=== PATIENT | male | born 1935 | race Caucasian/White ===

== ENCOUNTER 2018-11-04 13:45 | Inpatient (IN) ==
[2018-11-04 14:30] LABS: Basophils # 0.1 K/mcL (0.0-0.2); Basophils % 0.8 %; Eosinophils % 0.3 %; Hematocrit 45.4 % (37.5-50.1); Hemoglobin 14.3 g/dL (12.9-16.9); Immature Granulocytes % 0.3 % (0-4); Lymphocytes # 1.2 K/mcL (0.6-4.6); Lymphocytes % 16.5 %; Mean Corpuscular HGB Conc 31.5 g/dL (31.6-35.5); Mean Corpuscular Hemoglobin 26.2 pg (28.0-33.3); Mean Corpuscular Volume 83.2 fL (83.0-100.0); Mean Platelet Volume 9.6 fL (9.4-12.4); Monocytes # 0.8 K/mcL (0.0-1.3); Monocytes % 10.6 %; Neutrophils # 5.2 K/mcL (1.6-8.9); Platelet Count 261 K/mcL (140-400); Red Blood Count 5.46 M/mcL (4.19-5.50); Red Cell Distribution Width 16.9 % (11.5-14.5); Segmented Neutrophils % 71.5 %; White Blood Count 7.3 K/mcL (4.3-11.1)
[2018-11-04 14:50] LABS: BUN/Creatinine Ratio 20 (6-26); Blood Urea Nitrogen 26 mg/dL (8-23); Calcium 9.5 mg/dL (8.6-10.3); Carbon Dioxide 23 mEq/L (23-29); Chloride 100 mEq/L (98-107); Glucose 184 mg/dL (70-105); Osmolality,Calculated 290 (280-300); Potassium 4.9 mEq/L (3.5-5.1); Sodium 135 mEq/L (136-145); eGFR For African Americans > 60 (> 60); eGFR For Non-African Americans 52 (> 60)
[2018-11-04 14:55] LABS: Troponin I 0.14 ng/mL (< 0.04)
[2018-11-04] MEDS ORDERED: Furosemide 20 MG/2 ML VIAL IVP ONE (14:56)
--- NOTE | 2018-11-04 15:00 | Emergency Department Note ---
Disposition Clinical Impression: Congestive heart failure Qualifiers: Heart failure type: unspecified Heart failure chronicity: acute Qualified Code(s): I50.9 - Heart failure, unspecified Disposition: Admitted As Inpatient Condition: Fair Time of Disposition: 14:50 General Adult HPI - General Chief complaint: ED Shortness of Breath/Dyspnea Stated complaint: ADAMA,Bi-Lateral Leg Swelling Time Seen by Provider: 11/04/18 13:50 Source: patient, family Limitations: no limitations Nursing Notes Reviewed: Yes Vital Signs Reviewed: Yes - History of Present Illness HPI Narrative: 83-year-old male presents emergency Department with concerns of shortness of breath. Patient states dyspnea worsens with exertion and with going upstairs. He has swelling the bilateral lower extremities. He is not sleeping in a recliner. He denies recent chest pain or palpitations or syncope. No recent trauma. Patient denies fever, chills, nausea, vomiting, diarrhea. No history of previous congestive heart failure, no history of cardiac disease in the past. Does not take blood thinning medications. Pain Scale: 0 - Related Data Home Medications Medication Instructions Recorded Confirmed Aspirin 81 mg PO DAILY 09/14/17 11/04/18 Metformin HCl [Metformin ER 500 mg PO DAILY 09/14/17 11/04/18 Gastric] Mv-Mn/FA/Vit K/Lycop/Lut/Coq10 1 tab PO DAILY 09/14/17 11/04/18 [Daily Multivitamin Capsule] [place]-3/Dha/Epa/Fish Oil [Fish Oil 1 tab PO DAILY 09/14/17 11/04/18 1,000 mg Softgel] Simvastatin [Zocor] 40 mg PO HS 09/14/17 11/04/18 Sertraline [Zoloft] 50 mg PO DAILY 11/04/18 11/04/18 Allergies Allergy/AdvReac Type Severity Reaction Status Date / Time No Known Allergies Allergy Unverified 08/23/17 13:50 All systems ED: reviewed and negative except as stated. Review of Systems: As Per HPI Past Medical History - Past Medical History Attestation: Yes The following information was validated with the patient. Source: patient Medical history: Reports: diabetes, hyperlipidemia Psychiatric history: Reports: no psych history - Social History Smoking Status: Never smoker Smokeless Tobacco Status: No Alcohol use: Reports: none Drug use: Reports: none Physical Exam General: Alert and in no acute distress Skin: Warm, dry, intact Head: Normocephalic and atraumatic Neck: Supple, trachea midline and no tenderness Cardiovascular: tachycardia, no murmur, normal perfusion Respiratory: CTAB, no wheezing, cough, or respiratory distress Musculoskeletal: Normal strength, +2 swelling the bilateral lower extremity with pulses equal bilateral lower extremity. GI: Soft, nontender, nondistended. Bowel sounds present Neuro: A&O to person, place, time and situation. No focal deficits noted on exam Psychiatric: cooperative and appropriate mood and affect. - General Limitations: no limitations General appearance: alert, in no apparent distress Course Vital Signs Temperature 97.9 F 11/04/18 14:10 Pulse Rate 114 11/04/18 14:10 Respiratory Rate 22 11/04/18 14:10 Blood Pressure 149/111 11/04/18 14:10 O2 Sat by Pulse Oximetry 99 11/04/18 14:10 Temperature 97.8 F 11/04/18 19:56 Pulse Rate 95 11/04/18 19:56 Respiratory Rate 18 11/04/18 19:56 Blood Pressure 120/85 11/04/18 19:56 O2 Sat by Pulse Oximetry 98 11/04/18 19:56 Oxygen Delivery Oxygen Delivery Room Air Medical Decision Making - [facility] Narrative Medical decision making narrative: Patient clinical history fits with acute congestive heart failure. He does have mildly elevated lactic acid level. He does not have a fever or leukocytosis. No infiltrate was seen on chest x-ray however he does have vascular congestion present. He is given Lasix in the emergency department. He does not take any at home. He is given aspirin emergency department for an elevated troponin. He is updated presented regarding his results. He is comfortable with the plan for admission to the hospital for further care and evaluation. - Medical Records Medical records reviewed: Yes I reviewed the patient's medical records. - Lab Data Lab results reviewed: Yes I reviewed the patient's lab results. Result diagrams: 11/04/18 14:10 11/04/18 14:10 Lab Results 11/04/18 11/04/18 11/04/18 Range/Units 14:10 14:10 14:10 WBC 7.3 (4.3-11.1) K/mcL RBC 5.46 (4.19-5.50) M/mcL Hgb 14.3 (12.9-16.9) g/dL Hct 45.4 (37.5-50.1) % MCV 83.2 (83.0-100.0) fL MCH 26.2 L (28.0-33.3) pg MCHC 31.5 L (31.6-35.5) g/dL RDW 16.9 H (11.5-14.5) % Plt Count 261 (140-400) K/mcL MPV 9.6 (9.4-12.4) fL Immature Gran % 0.3 (0-4) % Seg Neutrophils % 71.5 % Lymphocytes % 16.5 % Monocytes % 10.6 % Eosinophils % 0.3 % Basophils % 0.8 % Neutrophils # 5.2 (1.6-8.9) K/mcL Lymphocytes # 1.2 (0.6-4.6) K/mcL Monocytes # 0.8 (0.0-1.3) K/mcL Eosinophils # 0.0 (0.0-0.6) K/mcL Basophils # 0.1 (0.0-0.2) K/mcL Sodium 135 L (136-145) mEq/L Potassium 4.9 (3.5-5.1) mEq/L Chloride 100 (98-107) mEq/L Carbon Dioxide 23 (23-29) mEq/L BUN 26 H (8-23) mg/dL Creatinine 1.31 H (0.70-1.30) mg/dL Est GFR ( Amer) > 60 (> 60) Est GFR (Non-Af Amer) 52 L (> 60) BUN/Creatinine Ratio 20 (6-26) Glucose 184 H (70-105) mg/dL Calculated Osmolality 290 (280-300) Lactic Acid 3.2 H (0.5-2.2) mmol/L Calcium 9.5 (8.6-10.3) mg/dL Troponin I 0.14 H* (< 0.04) ng/mL B-Natriuretic Peptide (Less than 100) pg/mL 11/04/18 Range/Units 14:10 WBC (4.3-11.1) K/mcL RBC (4.19-5.50) M/mcL Hgb (12.9-16.9) g/dL Hct (37.5-50.1) % MCV (83.0-100.0) fL MCH (28.0-33.3) pg MCHC (31.6-35.5) g/dL RDW (11.5-14.5) % Plt Count (140-400) K/mcL MPV (9.4-12.4) fL Immature Gran % (0-4) % Seg Neutrophils % % Lymphocytes % % Monocytes % % Eosinophils % % Basophils % % Neutrophils # (1.6-8.9) K/mcL Lymphocytes # (0.6-4.6) K/mcL Monocytes # (0.0-1.3) K/mcL Eosinophils # (0.0-0.6) K/mcL Basophils # (0.0-0.2) K/mcL Sodium (136-145) mEq/L Potassium (3.5-5.1) mEq/L Chloride (98-107) mEq/L Carbon Dioxide (23-29) mEq/L BUN (8-23) mg/dL Creatinine (0.70-1.30) mg/dL Est GFR ( Amer) (> 60) Est GFR (Non-Af Amer) (> 60) BUN/Creatinine Ratio (6-26) Glucose (70-105) mg/dL Calculated Osmolality (280-300) Lactic Acid (0.5-2.2) mmol/L Calcium (8.6-10.3) mg/dL Troponin I (< 0.04) ng/mL B-Natriuretic Peptide 3317 H (Less than 100) pg/mL - Radiology Data Radiology results reviewed: Yes I reviewed the patient's radiology results. - EKG Data EKG #1 EKG attestation: Yes I reviewed and interpreted this EKG. EKG results narrative: Sinus tachycardia with a rate of 118 without evidence of STEMI or dysrhythmia, QTC of 487, QRS of 98 with multiple PVCs.
[2018-11-04] MEDS ORDERED: Aspirin 81 MG TAB.CHEW PO ONE (15:04)
[2018-11-04] MEDS ORDERED: Furosemide 40 MG/4 ML VIAL IVP ONE (15:46)
[2018-11-04] MEDS ORDERED: Naloxone 0.4 MG/ML INJ IVP PRN (15:50)
[2018-11-04] MEDS ORDERED: Furosemide 40 MG/4 ML VIAL ONE (15:52)
[2018-11-04] MEDS ORDERED: Dextrose Gel 15 GM/37.5 ML TUBE PO PRN ×2 (15:53)
[2018-11-04] MEDS ORDERED: *HR* Dextrose 50 % in Water (Syg) 50 ML SYRINGE IVP PRN (15:53)
[2018-11-04] MEDS ORDERED: D5% in Water 1,000 ML IVC PRN (15:53)
[2018-11-04] MEDS ORDERED: *HR* Metoprolol 5 MG/5 ML VIAL IVP PRN (16:14)
--- NOTE | 2018-11-04 16:17 | Internal Med History&Physical ---
Date of Encounter: 11/04/18 Time of Encounter: 15:25 Internal Medicine - H&P: HPI Chief complaint: shortness of breath Admitted From: Home Plans for Post Hospital Care: Home History of present illness: Mr. Massey is a 83 year old pleasant elderly male with PMH of DM type II, HTN, cholelithiasis who presents to the ER for evaluation of shortness of breath, weight gain, and worsening lower extremity edema. Patient is seen and examined with daughter present at bedside. Patient states for the last few weeks he has been gradually getting more short of breath with ambulation, which worsened last week. He has noted 8lb weight gain since Tuesday, and has had significant swelling in his bilateral lower extremities. Denies any orthopnea but has significant exertional dyspnea to a point that even with minimal ambulation he is in deep respiratory distress. He states he feels comfortable at rest. He is also currently undergoing surgical consultation as outpatient for cholelithaisis as he was having severe right upper quadrant pain, which has now resolved. He is scheduled for an outpatient follow up with Dr. Vizcarra on 11/07/18. He denies any headache, chest pain, sob, abd pain,n/v, fever, or chills at this time. He is noted to be hypertensive with an elevated Lactate and elevated troponin in the ER. He is saturating well on room air at this time Pt is ordered to received Lasix 40mg IV Pt's code status was discussed with patient, he wishes to be Full code. Ten point ROS is negative except as listed above Past Med Surg Social Fam HX - Past Medical History Medical history: diabetes, hyperlipidemia Additional medical history: htn Psychiatric history: no psych history - Past Surgical History Additional surgical history: skin cancer removed, bilat hernia repain (September 2017) - Social History Smoking Status: Never smoker Smokeless Tobacco Status: No Alcohol use: none Drug use: none Internal Medicine - H&P: Meds RX: Aspirin 81 mg PO DAILY 09/14/17 [History] RX: Lisinopril/Hydrochlorothiazide [Zestoretic 10-12.5 mg Tablet] 1 tab PO DAILY 09/14/17 [History] RX: Metformin HCl [Metformin ER Gastric] 500 mg PO DAILY 09/14/17 [History] RX: Mv-Mn/FA/Vit K/Lycop/Lut/Coq10 [Daily Multivitamin Capsule] 1 tab PO DAILY 09/14/17 [History] RX: [place]-3/Dha/Epa/Fish Oil [Fish Oil 1,000 mg Softgel] 1 tab PO DAILY 09/14/17 [History] RX: Simvastatin [Zocor] 40 mg PO HS 09/14/17 [History] Docusate [Colace] 100 mg PO BID #30 capsule 09/15/17 [Rx] Ondansetron ODT [Zofran ODT] 4 mg SL Q6HR PRN #15 tab.rapdis 09/15/17 [Rx] RX: Ibuprofen 800 mg PO Q8H #42 tablet 09/15/17 [Rx] RX: OxyCODONE/APAP 5/325 [Percocet 5/325 MG] 1 each PO Q6HR PRN 7 Days #28 tablet 09/15/17 [Rx] Allergy/AdvReac Type Severity Reaction Status Date / Time No Known Allergies Allergy Unverified 08/23/17 13:50 All Systems PM: A 10-system review of systems was performed and is negative for pertinent findings except as documented above in the HPI. Review of systems: Ten point ROS is negative except as listed in HPI - Constitutional Vitals: Temp Pulse Resp BP Pulse Ox 97.9 F 114 18 149/111 99 11/04/18 14:10 11/04/18 14:18 11/04/18 14:18 11/04/18 14:18 11/04/18 14:18 Exam: General: No acute distress, AAO x 3, pleasant elderly male HEENT: EOMI, PERRLA, NC/AT, no scleral icterus, Respiratory: Diffuse rales, no wheezing Cardiovascular: Regular Rhythm, tachycardic, No murmurs, No JVD GI: Soft, Non tender, distended, normal bowel sounds Ext: 2+ pitting edema in bilateral Lower extremities, positive pulses Neuro: AAO x 3, no focal deficits, CN II-XII grossly intact Rest of the clinical exam is noncontributory Internal Med - H&P Results - Labs CBC & Chem 7: 11/04/18 14:10 11/04/18 14:10 Labs: Short CBC 11/04/18 Range/Units 14:10 WBC 7.3 (4.3-11.1) K/mcL Hgb 14.3 (12.9-16.9) g/dL Hct 45.4 (37.5-50.1) % Plt Count 261 (140-400) K/mcL Neutrophils # 5.2 (1.6-8.9) K/mcL BMP 11/04/18 14:10 Sodium 135 L Potassium 4.9 Chloride 100 Carbon Dioxide 23 BUN 26 H Creatinine 1.31 H Glucose 184 H Calcium 9.5 Cardiac Enzymes 11/04/18 Range/Units 14:10 Troponin I 0.14 H* (< 0.04) ng/mL - Impressions ITS Impressions Chest X-Ray 11/04/18 13:55 IMPRESSION: Cardiomegaly and findings suggesting developing acute congestive heart failure. No effusion or lobar consolidation. D/ / 11/04/2018 14:26:04 Hiren Snyder MD / alexa Interpreting Provider: Hiren Snyder MD - Summary of Assessment and Plan Summary of Assessment and Plan: Mr. Massey is a 83 year old pleasant elderly male with PMH of DM type II, HTN, cholelithiasis who presents to the ER for evaluation of shortness of breath, weight gain, and worsening lower extremity edema. Assessment/Plan: 1. Acute dyspnea likely secondary to CHF exacerbation no prior reported hx of CHF however given elevated BNP and clinical exam, symptoms concerning for CHF decompensation will obtain 2D echo continue IV diuretics (Lasix 40mg IV BID) fluid restriction diet, monitor daily weights, strict I/Os tele monitoring will start Metoprolol 12.5mg PO BID 2gm Na diet cardiology evaluation requested 2. Elevated Troponin Likely demand ischemia in the setting of acute CHF decompensation will monitor serial TNI pt received a dose of Aspirin 325mg in the ER currently chest pain free, will closely monitor 3. Lactic acidosis likely secondary to htn urgency/CHF exacerbation clinically asymptomatic O2 supplementation as needed closely monitor O2 saturation, goal O2 saturation >94% 4. Hypertensive Urgency Will administer Lasix and Metoprolol will closely monitor BP Lopressor 5mg IV q6h prn SBP>160 or HR >100 with SBP>120 5. STEVE multifactorial, likely drug induced vs. HTN Urgency will hold home dose of Lisinopril/HCTZ closely monitor renal function 6. Hyponatremia will hold home dose of HCTZ will closely monitor 7. DM type II-controlled hold oral antihyperglycemic agents will start sliding scale insulin algorithm monitor fingerstick and blood glucose ADA diet 8. Hx of Cholelithiasis will closely monitor asymptomatic at this time, if becomes symptomatic, will consider surgery evaluation DVT ppx: Heparin SQ LOS > 2 midnights code status: Full code Care plan discussed with patient/RN/family - Time Spent With Patient Total time spent is greater than 50% in coordination of care (as documented) at patient's floor/unit and/or counseling patient:
[2018-11-04] MEDS ORDERED: Ipratropium/Albuterol Neb 3 ML IH PRN (16:19)
[2018-11-04] MEDS: Insulin LISPRO 300 UNITS/3 ML VIAL SQ SCH ×2 (18:05→20:02)
[2018-11-04] MEDS: *HR* Heparin 5,000 UNIT/ML VIAL SQ SCH (18:37)
[2018-11-05 02:00] LABS: Basophils % 0.5 %; Eosinophils % 0.5 %; Hematocrit 46.2 % (37.5-50.1); Hemoglobin 14.7 g/dL (12.9-16.9); Immature Granulocytes % 0.3 % (0-4); Lymphocytes # 1.7 K/mcL (0.6-4.6); Lymphocytes % 23.4 %; Mean Corpuscular HGB Conc 31.8 g/dL (31.6-35.5); Mean Corpuscular Hemoglobin 26.2 pg (28.0-33.3); Mean Corpuscular Volume 82.4 fL (83.0-100.0); Mean Platelet Volume 9.5 fL (9.4-12.4); Monocytes # 0.8 K/mcL (0.0-1.3); Monocytes % 11.2 %; Neutrophils # 4.7 K/mcL (1.6-8.9); Platelet Count 242 K/mcL (140-400); Red Blood Count 5.61 M/mcL (4.19-5.50); Red Cell Distribution Width 16.8 % (11.5-14.5); Segmented Neutrophils % 64.1 %; White Blood Count 7.3 K/mcL (4.3-11.1)
[2018-11-05 02:14] LABS: Alanine Aminotransferase 337 Units/L (7-52); Albumin 3.8 g/dL (3.5-5.7); Albumin/Globulin Ratio 1.3 (1.1-2.2); Alkaline Phosphatase 394 Units/L (34-104); Aspartate Amino Transferase 363 Units/L (13-39); BUN/Creatinine Ratio 21 (6-26); Bilirubin,Total 1.2 mg/dL (0.3-1.0); Blood Urea Nitrogen 29 mg/dL (8-23); Calcium 9.1 mg/dL (8.6-10.3); Carbon Dioxide 24 mEq/L (23-29); Chloride 100 mEq/L (98-107); Chol/HDL Ratio 3.5 (0-4.9); Cholesterol 145 mg/dL (< 200); Glucose 135 mg/dL (70-105); HDL Cholesterol 42 mg/dL (40-59); LDL Cholesterol,Calculated 87 mg/dL (0-99); Magnesium 2.2 mg/dL (1.6-2.6); Osmolality,Calculated 286 (280-300); Phosphorous 3.8 mg/dL (2.7-4.5); Potassium 4.2 mEq/L (3.5-5.1); Sodium 134 mEq/L (136-145); Total Protein 6.8 g/dL (6.4-8.9); Triglycerides 80 mg/dL (< 150); eGFR For African Americans > 60 (> 60); eGFR For Non-African Americans 50 (> 60)
[2018-11-05 02:43] LABS: Estimated Average Glucose 157 mg/dl
[2018-11-05] MEDS: *HR* Heparin 5,000 UNIT/ML VIAL SQ SCH (06:03)
[2018-11-05] MEDS: Furosemide 40 MG/4 ML VIAL IVP SCH ×2 (06:03→17:02)
[2018-11-05] MEDS: Aspirin 81 MG TAB.CHEW PO SCH (07:50)
[2018-11-05] MEDS: Insulin LISPRO 300 UNITS/3 ML VIAL SQ SCH ×4 (07:52→20:53)
[2018-11-05 08:49] LABS: Hepatitis B Surface Antigen Nonreactive (Nonreactive)
[2018-11-05 09:18] LABS: Hepatitis B Core IgM Nonreactive (Nonreactive); Hepatitis C Virus Antibody Nonreactive (Nonreactive)
[2018-11-05 09:20] LABS: Hepatitis A Antibody IgM Nonreactive (Nonreactive)
[2018-11-05] MEDS ORDERED: Isovue-370 500 ML BOTTLE IVP ONE (10:35)
--- NOTE | 2018-11-05 10:40 | Internal Med Progress Note ---
Hospitalist Progress Note - Encounter Date of Encounter: 11/05/18 Time of Encounter: 10:38 - Subjective Interval History: Patient seen and examined earlier this morning. Pt resting in bed and reported of being hypoxia and was placed on O2 suppl ementation Daughter present at bedside states patient was restless throughout the night and could not sleep. This morning he appeared to be hypoxic and cyanotic Pt denies any chest pain or palpitations Ten point ROS is negative except as listed above - Exam Vitals: Temp Pulse Resp BP Pulse Ox 97.7 F 105 14 133/98 97 11/05/18 07:00 11/05/18 07:00 11/05/18 07:00 11/05/18 07:00 11/05/18 07:00 Exam: General: No acute distress, AAO x 3, pleasant elderly male HEENT: EOMI, NC/AT, no scleral icterus, Respiratory: Equal air entry bilaterally, minimal rales on bilateral lower bases, no wheezing Cardiovascular: Regular Rhythm, tachycardic, No murmurs, No JVD GI: Soft, Non tender, distended, normal bowel sounds Ext: 2+ pitting edema in bilateral Lower extremities, positive pulses Neuro: AAO x 3, no focal deficits Rest of the clinical exam is noncontributory - Summary of Assessment and Plan Summary of Assessment and Plan: Mr. Massey is a 83 year old pleasant elderly male with PMH of DM type II, HTN, cholelithiasis who presents to the ER for evaluation of shortness of breath, weight gain, and worsening lower extremity edema. Assessment/Plan: 1. Acute dyspnea likely secondary to CHF exacerbation no prior reported hx of CHF however given elevated BNP and clinical exam, symptoms concerning for CHF decompensation f/u 2D echo continue IV diuretics (Lasix 40mg IV BID) fluid restriction diet, monitor daily weights, strict I/Os tele monitoring Metoprolol increased to 25mg PO BID cardiology evaluation appreciated given acute respiratory distress with hypoxia, will obtain CTA chest to rule out PE 2. Elevated Troponin Likely demand ischemia in the setting of acute CHF decompensation will monitor serial TNI pt received a dose of Aspirin 325mg in the ER currently chest pain free, will closely monitor 3. Lactic acidosis likely secondary to htn urgency/CHF exacerbation O2 supplementation as needed closely monitor O2 saturation, goal O2 saturation >94% 4. Hypertensive Urgency resolved BP appropriately controlled 5. STEVE multifactorial, likely drug induced vs. HTN Urgency resolved closely monitor renal function 6. Hyponatremia will hold home dose of HCTZ will closely monitor 7. DM type II-controlled hold oral antihyperglycemic agents continue sliding scale insulin algorithm monitor fingerstick and blood glucose ADA diet 8. Hx of Cholelithiasis will closely monitor asymptomatic at this time, if becomes symptomatic, will consider surgery evaluation 9. Elevated LFTs likely secondary to cholelithiasis f/u hepatitis profile GI evaluation requested DVT ppx: Heparin SQ code status: Full code Care plan discussed with patient/RN/family - Time Spent with Patient Total time spent is greater than 50% in coordination of care (as documented) at patient's floor/unit and/or counseling patient: Internal Medicine: Result - Labs CBC & Chem 7: 11/05/18 01:42 11/05/18 01:42 Labs: Short CBC 11/04/18 11/05/18 Range/Units 14:10 01:42 WBC 7.3 7.3 (4.3-11.1) K/mcL Hgb 14.3 14.7 (12.9-16.9) g/dL Hct 45.4 46.2 (37.5-50.1) % Plt Count 261 242 (140-400) K/mcL Neutrophils # 5.2 4.7 (1.6-8.9) K/mcL BMP 11/04/18 11/05/18 14:10 01:42 Sodium 135 L 134 L Potassium 4.9 4.2 Chloride 100 100 Carbon Dioxide 23 24 BUN 26 H 29 H Creatinine 1.31 H 1.36 H Glucose 184 H 135 H Calcium 9.5 9.1 Cardiac Enzymes 11/04/18 11/04/18 11/05/18 Range/Units 14:10 19:55 01:42 Troponin I 0.14 H* 0.14 H* 0.14 H* (< 0.04) ng/mL Liver Function 11/05/18 Range/Units 01:42 Total Bilirubin 1.2 H (0.3-1.0) mg/dL AST 363 H (13-39) Units/L ALT 337 H (7-52) Units/L Alkaline Phosphatase 394 H (34-104) Units/L Albumin 3.8 (3.5-5.7) g/dL - Impressions Impressions Chest X-Ray 11/04/18 13:55 IMPRESSION: Cardiomegaly and findings suggesting developing acute congestive heart failure. No effusion or lobar consolidation. D/ / 11/04/2018 14:26:04 Hiren Snyder MD / alexa Interpreting Provider: Hiren Snyder MD Consult Discharge Plan - Plan Referrals: NONE,PCP [Non-Partnered Physician] -
--- NOTE | 2018-11-05 10:41 | Cardiology Consult Note ---
Date of Encounter: 11/05/18 Time of Encounter: 10:38 Assessment and Plan (1) Congestive heart failure Current Visit: Yes Status: Acute Presentation is consistent with congestive heart failure. Exact type, systolic or diastolic, is undetermined. Given the abnormal ECG, which suggest an age-indeterminate anteroseptal myocardial infarction, I suspect HFrEF. TTE is pending. Recommend continued diuresis. Increase Lasix to 40 mg twice daily. Monitor serum creatinine, daily weights, strict I's and O's. Further recommendations made based upon results of his echocardiogram and response to diuresis. Qualifiers: Heart failure type: unspecified Heart failure chronicity: acute Qualified Code(s): I50.9 - Heart failure, unspecified (2) Elevated troponin Current Visit: Yes Status: Acute Mildly elevated troponin in the setting of CHF. Troponin is adynamic. Suspect this is a type II event. However, ECG does also suggest an age-indeterminate anteroseptal myocardial infarction. TTE is pending. Further recommendations to follow. (3) Abnormal ECG Current Visit: Yes Status: Acute See comments above. Discussion w patient/family: The assessment and plan as outlined above was discussed with the patient and/or family members who expressed understanding and agreement. All questions were answered. Thank you for involving us in the care of your patient. Please call with any questions. History of Present Illness Consult date: 11/05/18 Requesting physician: Carrie Jacobs Consult reason: CHF Chief complaint: Shortness of breath, Edema History of present illness: Mr. Massey is a 83 year old male with no prior cardiac issues. He has never required an echocardiogram or stress test. Reports increasing shortness of breath and lower extremity edema over the last 2-3 weeks. Also described mild abdominal pain, recently seen by PCP and referred to Dr. Vizcarra. Due to increasing edema and shortness of breath, came to the ER last evening. ECG reviewed personally, which demonstrated sinus tachycardia, heart rate 118, PVC, and evidence of an age indeterminate anteroseptal infarction. Today, reports his symptoms have mildly improved. Continues to have some mild s hortness of breath and ongoing lower extremity edema. Serum creatinine stable, 1.31 now 1.36. Mild troponin elevation noted, 0.14. Elevated BNP greater than 3000, chest x-ray consistent with pulmonary congestion. Past Med Surg Social Fam HX - Past Medical History Medical history: diabetes, hyperlipidemia Additional medical history: htn Psychiatric history: no psych history - Past Surgical History Additional surgical history: skin cancer removed, bilat hernia repain (September 2017) - Social History Smoking Status: Never smoker Smokeless Tobacco Status: No Alcohol use: none Drug use: none - Family History Mother Living Status: Age at : 77 Medications and Allergies Aspirin 81 mg PO DAILY 09/14/17 [History] Metformin HCl [Metformin ER Gastric] 500 mg PO DAILY 09/14/17 [History] Mv-Mn/FA/Vit K/Lycop/Lut/Coq10 [Daily Multivitamin Capsule] 1 tab PO DAILY 09/14/17 [History] [place]-3/Dha/Epa/Fish Oil [Fish Oil 1,000 mg Softgel] 1 tab PO DAILY 09/14/17 [History] Simvastatin [Zocor] 40 mg PO HS 09/14/17 [History] Sertraline [Zoloft] 50 mg PO DAILY 11/04/18 [History] Allergy/AdvReac Type Severity Reaction Status Date / Time No Known Allergies Allergy Unverified 08/23/17 13:50 All Systems Review: The remainder of the systems were reviewed and are negative - Cardiovascular Cardiovascular: as per HPI Physical Examination Vital Signs, Last 4 Hours Temp Pulse Resp BP Pulse Ox 11/05/18 07:00 97.7 F 105 14 133/98 97 General: Conversant, No Apparent Distress HEENT: Atraumatic, Normocephaly, Mucus Membranes Moist Neck: No JVD, Normal carotid pulses Cardiac: Reg Rate and Rhythm, Normal S1 and S2, No Murmur Lungs: Other (Mostly clear, mild crackles right base.) Neuro: Alert and responsive, No focal deficits noted Abdomen: Soft, Non-Tender Skin: No rashes noted on visualized skin Musculoskeletal: No Chest Wall Tenderness Extremities: No Clubbing, No Cyanosis, Other (+2 edema bilateral lower extremity.) Results 11/05/18 01:42 11/05/18 01:42 Lab Results 11/04/18 11/04/18 11/04/18 14:10 14:10 14:10 WBC 7.3 Hgb 14.3 Hct 45.4 Plt Count 261 Sodium 135 L Potassium 4.9 Chloride 100 Carbon Dioxide 23 BUN 26 H Creatinine 1.31 H Glucose 184 H Calcium 9.5 Magnesium Total Bilirubin AST ALT Alkaline Phosphatase Troponin I 0.14 H* B-Natriuretic Peptide 3317 H 11/04/18 11/05/18 11/05/18 19:55 01:42 01:42 WBC 7.3 Hgb 14.7 Hct 46.2 Plt Count 242 Sodium Potassium Chloride Carbon Dioxide BUN Creatinine Glucose Calcium Magnesium Total Bilirubin AST ALT Alkaline Phosphatase Troponin I 0.14 H* 0.14 H* B-Natriuretic Peptide 11/05/18 11/05/18 01:42 01:42 WBC Hgb Hct Plt Count Sodium 134 L Potassium 4.2 Chloride 100 Carbon Dioxide 24 BUN 29 H Creatinine 1.36 H Glucose 135 H Calcium 9.1 Magnesium 2.2 Total Bilirubin 1.2 H AST 363 H ALT 337 H Alkaline Phosphatase 394 H Troponin I B-Natriuretic Peptide 3597 H - EKG Interpretation EKG results cardiology: personally reviewed Consult Discharge Plan - Plan Referrals: NONE,PCP [Non-Partnered Physician] -
[2018-11-05] MEDS ORDERED: *HR* Heparin 5,000 UNIT/ML VIAL IVP PRN ×2 (12:18)
[2018-11-05] MEDS ORDERED: *HR* Heparin 5,000 UNIT/ML VIAL IVP ONE (12:18)
[2018-11-05 13:00] LABS: Hematocrit 46.6 % (37.5-50.1); Hemoglobin 14.8 g/dL (12.9-16.9); Mean Corpuscular HGB Conc 31.8 g/dL (31.6-35.5); Mean Corpuscular Hemoglobin 26.7 pg (28.0-33.3); Mean Platelet Volume 9.6 fL (9.4-12.4); Platelet Count 278 K/mcL (140-400); Red Blood Count 5.55 M/mcL (4.19-5.50); Red Cell Distribution Width 17.1 % (11.5-14.5); White Blood Count 7.7 K/mcL (4.3-11.1)
[2018-11-05 13:07] LABS: Heparin anti-factor XA UFH 0.02 IU/mL (0.30-0.70)
[2018-11-05 13:08] LABS: INR 1.5; Prothrombin Time 17.2 Seconds (9.4-12.1)
[2018-11-05] MEDS: Heparin 25,000 UNIT/250 ML D5W 25,000 UNIT/250 ML IV.SOLN IVC SCH (13:21)
[2018-11-05] MEDS ORDERED: Perflutren Lipid Microsphere 1.3 ML in 0.9 % Sodium Chloride 8.7 ML IVP ONE (15:09)
[2018-11-06 05:32] LABS: Basophils % 0.4 %; Eosinophils % 0.1 %; Hematocrit 44.5 % (37.5-50.1); Hemoglobin 14.5 g/dL (12.9-16.9); Immature Granulocytes % 0.4 % (0-4); Lymphocytes # 1.3 K/mcL (0.6-4.6); Lymphocytes % 17.1 %; Mean Corpuscular HGB Conc 32.6 g/dL (31.6-35.5); Mean Corpuscular Hemoglobin 26.1 pg (28.0-33.3); Mean Corpuscular Volume 80.2 fL (83.0-100.0); Mean Platelet Volume 9.8 fL (9.4-12.4); Monocytes # 0.6 K/mcL (0.0-1.3); Monocytes % 7.5 %; Neutrophils # 5.5 K/mcL (1.6-8.9); Platelet Count 252 K/mcL (140-400); Red Blood Count 5.55 M/mcL (4.19-5.50); Red Cell Distribution Width 16.9 % (11.5-14.5); Segmented Neutrophils % 74.5 %; White Blood Count 7.4 K/mcL (4.3-11.1)
[2018-11-06 06:06] LABS: Albumin 3.6 g/dL (3.5-5.7); Albumin/Globulin Ratio 1.3 (1.1-2.2); Bilirubin,Total 1.4 mg/dL (0.3-1.0); Globulin 2.7 g/dL (2.4-3.5); Magnesium 2.2 mg/dL (1.6-2.6); Phosphorous 4.9 mg/dL (2.7-4.5); Total Protein 6.3 g/dL (6.4-8.9)
[2018-11-06] MEDS: Furosemide 40 MG/4 ML VIAL IVP SCH (06:06)
[2018-11-06] MEDS: Insulin LISPRO 300 UNITS/3 ML VIAL SQ SCH ×2 (09:04→11:49)
[2018-11-06] MEDS: Aspirin 81 MG TAB.CHEW PO SCH (09:08)
--- NOTE | 2018-11-06 10:22 | Discharge Summary ---
- NOTES TO OUTPATIENT PROVIDER Notes to Outpatient Provider: as per [facility] Orders not resulted at time of discharge: Pending orders 11/06/18 12:00 Heparin anti-factor XA UFH [COAG] Timed Date of Encounter: 11/06/18 Time of Encounter: 10:20 - Discharge Diagnosis (1) Acute HFrEF (heart failure with reduced ejection fraction) Priority: Primary Status: Acute (2) Shock liver Priority: Secondary Status: Acute (3) Pulmonary embolism Priority: Secondary Status: Acute Qualifiers: Pulmonary embolism type: unspecified Chronicity: acute Acute cor pulmonale presence: without acute cor pulmonale Qualified Code(s): I26.99 - Other pulmonary embolism without acute cor pulmonale (4) Pleural effusion Priority: Secondary Status: Acute (5) Acute renal failure Priority: Secondary Status: Acute Qualifiers: Acute renal failure type: unspecified Qualified Code(s): N17.9 - Acute kidney failure, unspecified (6) Elevated troponin Priority: Secondary Status: Acute (7) Cholelithiasis Priority: Secondary Status: Acute Qualifiers: Cholelithiasis location: gallbladder Cholecystitis presence: without cholecystitis Biliary obstruction: without biliary obstruction Qualified Code(s): K80.20 - Calculus of gallbladder without cholecystitis without obstruction (8) Diabetes Priority: Secondary Status: Acute Qualifiers: Diabetes mellitus type: type 2 Diabetes mellitus intermodal owner operator truck driver insulin use: without skilled nursing use Diabetes mellitus complication status: without complication Qualified Code(s): E11.9 - Type 2 diabetes mellitus without complications (9) Abnormal ECG Priority: Secondary Status: Acute (10) Congestive heart failure Priority: Secondary Status: Acute Qualifiers: Heart failure type: systolic Heart failure chronicity: acute Qualified Code(s): I50.21 - Acute systolic (congestive) heart failure (11) Elevated troponin Priority: Secondary Status: Acute (12) Inguinal hernia bilateral, non-recurrent Priority: Secondary Status: Acute Qualifiers: Obstruction and gangrene presence: without obstruction or gangrene Recurrence: non-recurrent Qualified Code(s): K40.20 - Bilateral inguinal hernia, without obstruction or gangrene, not specified as recurrent (13) S/P inguinal hernia repair Priority: Secondary Status: Acute Hospital course: "Mr. Massey is a 83 year old pleasant elderly male with PMH of DM type II, HTN, cholelithiasis who presents to the ER for evaluation of shortness of breath, weight gain, and worsening lower extremity edema. Patient is seen and examined with daughter present at bedside. Patient states for the last few weeks he has been gradually getting more short of breath with ambulation, which worsened last week. He has noted 8lb weight gain since Tuesday, and has had significant swelling in his bilateral lower extremities. Denies any orthopnea but has significant exertional dyspnea to a point that even with minimal ambulation he is in deep respiratory distress. He states he feels comfortable at rest. He is also currently undergoing surgical consultation as outpatient for cholelithaisis as he was having severe right upper quadrant pain, which has now resolved. He is scheduled for an outpatient follow up with Dr. Vizcarra on 11/07/18. He denies any headache, chest pain, sob, abd pain,n/v, fever, or chills at this time. He is noted to be hypertensive with an elevated Lactate and elevated troponin in the ER. He is saturating well on room air at this time " vicente was admitted on 11/04 and my first encounter with the patient was on 11/06. CT angiogram on admission showed Bilateral pulmonary emboli. No evidence for right ventricular heart strain. Bilateral pleural effusions right greater than left. Small pericardial effusion She presented with above presentation and was admitted for acute pulmonary embolism. He was started on heparin drip and IV diuretics. Cardiology was consulted and echocardiogram performed on 11/05 showed ejection fraction of 15% ( full report below) . On admission he also had creatinine of 1.31 which trended up to 1.52 with diuresis. His liver enzymes trended up and GI was consulted, discussed case with Dr. Dumont who thought as though this is secondary to shock liver and patient was deemed safe for transfer from GI stand point. Hepatitis panels was negative, right upper quadrant ultrasound was ordered. i was notified by cardiology team and as per my discussi on with the cardiology team it was recommended for him to be transferred to a tertiary center. Daughter at bedside who works at [facility] had contacted ( travel money advisor) who had referred her to the firestop/containment worker Dr. Chris Dailey as she was anticipating transfer since yesterday. [facility] was called and Dr. Chris Dailey accepted the patient for transfer. I discussed liver enzymes with both daughters at bedside and they understand that since he has history of cholelithiasis there can be stone blocking the bile duct ( which can coause acute pancreatitis and further liver failure). as per my discussion with daughters will try to get the RUQ US performed while he is at [facility] and prior to transfer however they understand that the transfer can occur before the US and Like further workup to be performed at [facility] ( on examination he has had no abdominal pain, brown sign negative, no nausea, vomiting and was able to eat breakfast without difficulty. understands that he will need to remain NPO). he has only had -ve balance of 103. was going to consult nephrology this AM to help with diuresing the patient however a per family wishes and cardiology recommendations he is to be transfered to [facility]. patient and family understand risks and benefits of transfer including , cardiolgenic shock, , liver failure and ETc and the are in agreement. Discharge discussed with: patient, family, nurse, revenue cycle consultant - Time Spent with Patient Total time spent providing and/or coordinating discharge services: Time spent: Greater than 30 minutes (35) - Discharge Medications Prescriptions: New Heparin 5,300 unit IVP Q6HR PRN vial PRN Reason: See Comments Heparin 2,600 unit IVP Q6H PRN vial PRN Reason: See Comments Metoprolol [Lopressor] 25 mg PO BID tablet Ipratropium/Albuterol Neb [Duoneb] 3 ml IH [id number] PRN inhsol PRN Reason: Shortness Of Breath/Wheezing Continued Aspirin 81 mg PO DAILY [place]-3/Dha/Epa/Fish Oil [Fish Oil 1,000 mg Softgel] 1 tab PO DAILY Sertraline [Zoloft] 50 mg PO DAILY Discontinued Simvastatin [Zocor] 40 mg PO HS Mv-Mn/FA/Vit K/Lycop/Lut/Coq10 [Daily Multivitamin Capsule] 1 tab PO DAILY Metformin HCl [Metformin ER Gastric] 500 mg PO DAILY Home Medications: Aspirin 81 mg PO DAILY 09/14/17 [History] [place]-3/Dha/Epa/Fish Oil [Fish Oil 1,000 mg Softgel] 1 tab PO DAILY 09/14/17 [Hi story] Sertraline [Zoloft] 50 mg PO DAILY 11/04/18 [History] Heparin 2,600 unit IVP Q6H PRN vial 11/06/18 [Rx] Heparin 5,300 unit IVP Q6HR PRN vial 11/06/18 [Rx] Ipratropium/Albuterol Neb [Duoneb] 3 ml IH [id number] PRN inhsol 11/06/18 [Rx] Metoprolol [Lopressor] 25 mg PO BID tablet 11/06/18 [Rx] Allergies/Adverse Reactions: Allergy/AdvReac Type Severity Reaction Status Date / Time No Known Allergies Allergy Unverified 08/23/17 13:50 Date of admission: 11/05/18 12:34 Primary care physician: Isidro Meier MD Consults: 11/04/18 16:17 Consult to Cardiology [CONS] Routine Comment: Consulting Provider: Cardiology [place] Reason for Consult: newly diagnosed CHF, CHF exacerbation, elevated TNI Call Completed: No 11/05/18 10:37 Consult to Gastroenterology [CONS] Routine Consulting Provider: Gastroenterology [place] Reason for Consult: elevated LFTs Call Completed: No - Constitutional Vitals: Temp Pulse Resp BP Pulse Ox 97.8 F 89 18 129/86 98 11/06/18 08:12 11/06/18 08:12 11/06/18 08:12 11/06/18 08:12 11/06/18 06:03 Exam: General: No acute distress, AAO x 3, pleasant elderly male HEENT: EOMI, NC/AT, no scleral icterus, Respiratory: Equal air entry bilaterally, minimal rales on bilateral lower bases, no wheezing Cardiovascular: Regular Rhythm, s1 and s2 No murmurs GI: Soft, Non tender, distended, normal bowel sounds, brown sign negative, no flank discoloration or periumbilical discoloration. Ext: 2+ pitting edema in bilateral Lower extremities, positive pulses Neuro: AAO x 3, no focal deficits Rest of the clinical exam is noncontributory - Patient Status Disposition: Transfer Critical Access Hosp Condition: Critical Functional capacity at discharge: independent ambulation Overall status at discharge: patient is not back to baseline - Discharge Instructions Follow Up With: NONE,PCP [Non-Partnered Physician] - - Diet and Activity Diet: other (NPO )
--- NOTE | 2018-11-06 10:46 | Event Note ---
Date of Encounter: 11/06/18 Time of Encounter: 08:45 patient to be transferred to tertiary center. Dr. varela not containers sales representative ( if needed to have ERCP performed) RUQ US pending
[2018-11-06 11:23] VITALS: BP 115/84
[2018-11-06] MEDS: Heparin 25,000 UNIT/250 ML D5W 25,000 UNIT/250 ML IV.SOLN IVC SCH (11:49)
--- NOTE | 2018-11-06 12:23 | Gastroenterology Consult Note ---
<Katina Tyson - Last Filed: 11/06/18 12:18> Date of Encounter: 11/06/18 Time of Encounter: 09:45 - Assessment and plan (1) Shock liver Status: Acute Assessment and plan: Elevated liver enzymes likely due to shock liver. We will order liver ultrasound. Patient does have history of cholelithiasis and CBD obstruction is ruled out. Dr Ho is out of town and he would need transferred if ERCP is needed. Per Dr. Yousif, patient is being transferred to [facility] for further workup due to multiple complex comorbidities. (2) Cholelithiasis Status: Acute - Time Spent With Patient Total time spent is greater than 50% in coordination of care (as documented) at patient's floor/unit and/or counseling patient: GI History of Present Illness - Data of Consult Patient: new to practice Consult date: 11/06/18 Requesting Physician: Trisha Yousif MD - Consult Narrative Reason for consult: elevated LFTs History of present illness: Mr. Massey is a 83 year old pleasant elderly male with PMH of DM type II, HTN, cholelithiasis. He presented to the ER for evaluation of shortness of breath, weight gain, and worsening lower extremity edema. Patient states for the last few weeks he has been gradually getting more short of breath with ambulation, which worsened last week. He has noted 8lb weight gain since Tuesday, and has had significant swelling in his bilateral lower extremities. He is also currently undergoing surgical consultation as outpatient for cholelithaisis as he was having severe right upper quadrant pain, which has now resolved. He was scheduled for an outpatient follow up with Dr. Vizcarra on 11/07/18. Pt was admitted for workup, CTA showed bilateral PEs, troponins were elevated, he had acute kidney injury and hypertensive urgency. Laboratory workup showed a total bilirubin 1.4, AST 1306, ALT 1066, alkaline phosphatase 415. Hepatitis profile is negative. Patient denies any abdominal pain, nausea or vomiting. He denies any previous history of liver disease. He denies any family history of liver disease. He admits to occasional alcohol use. He denies any headache, chest pain, sob, abd pain,n/v, fever, or chills at this time. Past Med Surg Social Fam HX - Past Medical History Medical history: diabetes, hyperlipidemia Additional medical history: htn Psychiatric history: no psych history - Past Surgical History Additional surgical history: skin cancer removed, bilat hernia repain (September 2017) - Social History Smoking Status: Never smoker Smokeless Tobacco Status: No Alcohol use: none Drug use: none - Family History Mother Living Status: Age at : 77 Review of Systems: GI: as per [place] [facility]: denies fever, has some chills EYES: denies yellow discoloration ENT: denies pain with swallowing or difficulty swallowing CARDIO: denies chest pain, palpitations RESP: Shortness of breath with exertion, improving per pt : denies change in color of urine NEURO: weakness HEME: Denies any bruising MS: lower extremity swelling DERM: denies rash or itching PSYCH: Denies history of anxiety or depression - Constitutional Vitals: Temp Pulse Resp BP Pulse Ox 97.7 F 82 16 115/84 99 11/06/18 11:21 11/06/18 11:21 11/06/18 11:21 11/06/18 11:21 11/06/18 11:21 Exam: CONSTITUTIONAL:alert, no acute distress.HEAD:normocephalic.EYES:no jaundi ce.NECK:no obvious swelling.HEART:regular rate and rhythm, no murmurs.LUNGS:bilateral fair air entry.ABDOMEN:non distended, soft, non tender, no masses palpable, no organomegaly.RECTAL EXAM: Deferred.EXTREMITIES:no clubbing, cyanosis, 2+ BLE edemaSKIN:pallor noted, no stigmata of chronic liver disease.NEUROLOGIC:no obvious focal defect. Results - Labs CBC & Chem 7: 11/06/18 05:14 11/06/18 05:14 Labs: Last Result 11/06/18 05:14 Calcium 9.0 Entire Visit 11/06/18 11/06/18 05:14 05:14 Hgb 14.5 Hct 44.5 Total Bilirubin 1.4 H AST 1306 H ALT 1066 H - ABG ABG results: PT/INR, D-dimer PT 17.2 Seconds (9.4-12.1) H 11/05/18 12:40 - Impressions Impressions Chest CTA 11/05/18 10:35 IMPRESSION: 1. Bilateral pulmonary emboli. No evidence for right ventricular heart strain 2. Bilateral pleural effusions right greater than left 3. Small pericardial effusion 4. Findings were discussed with Carrie Jacobs MD at 12:18 pm on 11/05/2018. D/ / Chau Cooley MD / Chau Cooley MD Interpreting Provider: Chau Cooley MD Echocardiogram 11/05/18 15:52 Impressions: LVEF 15%. Mildly dilated left ventricle. Severe global left ventricular systolic dysfunction withe regional variations. There is no LV thrombus. Mildly dilated right ventricle. Mild right ventricular hypokinesis. Mild mitral regurgitation. Mild tricuspid regurgitation. Mild pulmonary hypertension. There is a small pericardial effusion present. There is no echocardiographic evidence of tamponade. Left Ventricular Wall Motion: Rest Echo Findings The apex, apical inferior, mid inferior, basal inferior, apical anterior, mid anterior, basal anterior, apical septal, mid inferior septal, basal inferior septal, apical lateral, mid anterior lateral, basal anterior lateral, mid anterior septal, mid inferior lateral, basal anterior septal and basal inferior lateral leon were hypokinetic. Findings: Study Quality * Technically adequate exam. ECG Findings * Normal sinus rhythm. Left Ventricle * LVEF 15%. * Mildly dilated left ventricle. * Severe global left ventricular systolic dysfunction withe regional variations. * There is no LV thrombus. Right Ventricle * Mildly dilated right ventricle. * Mild right ventricular hypokinesis. Left Atrium * Mildly dilated left atrium. Right Atrium * Mildly dilated right atrium. Interatrial Septum * Interatrial septum not well evaluated. Aortic Valve * Trileaflet aortic valve. * Mildly calcified aortic valve leaflets. * Trace aortic regurgitation. * No aortic stenosis. Mitral Valve * Normal mitral valve structure. * Mild mitral regurgitation. * No mitral stenosis. Tricuspid Valve * Normal tricuspid valve structure. * Mild tricuspid regurgitation. * Mild pulmonary hypertension. Pulmonic Valve * Pulmonic valve is not well visualized. * Trace pulmonic regurgitation. Aorta * Normally sized aortic root. Pericardium * There is a small pericardial effusion present. * There is no echocardiographic evidence of tamponade. IVC * Normal IVC dimensions and inspiratory collapse. Pulmonary Artery * Pulmonary artery not well visualized. Consult Discharge Plan - Plan Referrals: NONE,PCP [Non-Partnered Physician] - <Ramesh Quinones - Last Filed: 11/08/18 05:51> Date of Encounter: 11/06/18 - Time Spent With Patient Total time spent is greater than 50% in coordination of care (as documented) at patient's floor/unit and/or counseling patient: GI History of Present Illness - Data of Consult Requesting Physician: Trisha Yousif MD - Consult Narrative History of present illness: Mr. Massey is a 83 year old male - Constitutional Vitals: Temp Pulse Resp BP Pulse Ox 97.7 F 82 16 115/84 99 11/06/18 11:21 11/06/18 11:21 11/06/18 11:21 11/06/18 11:21 11/06/18 11:21 Results - Labs CBC & Chem 7: 11/06/18 05:14 11/06/18 05:14 - ABG ABG results: PT/INR, D-dimer PT 17.2 Seconds (9.4-12.1) H 11/05/18 12:40 - Attending Attestation 83 year old male with elevated liver associated enzymes which I suspect are probably secondary to ischemic hepatitis predominantly. He has other significant morbidities and agree with the hospitalist group about transferring him to [place] for further care. I have personally performed a face to face evaluation on this patient. I have reviewed and agree with the care plan. History and Exam by me shows:
--- NOTE | 2018-11-06 12:28 | Electrocardiograph Report ---
[address] [address] Test Date: 2018-11-04 Pat Name: Juan Jose Massey Department: EXAM19 Room: 2NE26 Gender: M Deputy Clerk Of [address]: : 1935 Requested By: Rusty Newton Order Number: [id number] Reading MD: Linh Obregon Measurements Intervals [place] Rate: 118 P: 64 NE: 157 QRS: -33 QRSD: 98 T: 81 QT: 347 QTc: 487 Interpretive Statements Sinus tachycardia Multiform ventricular premature complexes Left axis deviation Probable anteroseptal infarct, age indeterminate Electronically Signed On 11-06-2018 12:27:13 EDT by Linh Obregon
== END 2018-11-06 15:00 | disposition critical access hospital (66) | DRG 291 ==
LOC: 2NENU 13:45 → EMEROOARM 13:45 → SUATTDRO 15:06 → 2NENU 17:54 → SUATTDRO 11-05 12:34
PROVIDERS: ADMIT Internal Medicine Nephrology; ATTEND Internal Medicine